=== PATIENT | female | born 1995 | race Caucasian/White ===

== ENCOUNTER 2020-09-20 22:56 | Emergency (ER) | payer BC ==
[~2020-09-20] VITALS: Ht 162.6 cm; Wt 90.7 kg
[2020-09-20 23:06] VITALS: BP 140/83
[2020-09-20] MEDS ORDERED: LAMOTRIGINE250 MG PO (23:09)
[2020-09-20] MEDS ORDERED: WAL-PROFEN200 M1 PO (23:10)
[2020-09-20] MEDS ORDERED: MOBIC15 MG PO (23:48)
[2020-09-20] MEDS ORDERED: CLEOCIN HCL150 MG PO (23:48)
== END 2020-09-21 01:45 | disposition home or self-care (01) ==
LOC: ER 22:56
DX: Z79.899 Other long term (current) drug therapy (principal); Z88.0 Allergy status to penicillin; F17.210 Nicotine dependence, cigarettes, uncomplicated; K04.7 Periapical abscess without sinus